=== PATIENT | male | born 1975 | race African-American/Black ===

== ENCOUNTER 2019-10-15 09:54 | Emergency (ER) | payer SELFPAY ==
[~2019-10-15] VITALS: Ht 180.3 cm; Wt 70.3 kg
[2019-10-15] MEDS ORDERED: METR500T PO (10:30)
--- NOTE | 2019-10-15 10:32 | PHYS DOC ---
Past History Past Medical History: No Pertinent History Past Surgical History: No Surgical History Additional Smoking Information: 1/2 PACK Alcohol Use: Occasionally Drug Use: Marijuana Adult General Chief Complaint Chief Complaint: SEXUALLY TRANSMITTED DISEASE HPI HPI Patient is a 44 year old male who presents for an STD check. He states that his girlfriend was diagnosed with Trichomonas. He denies any symptoms. Review of Systems Review of Systems Constitutional: Denies fever or chills [] Eyes: Denies change in visual acuity, redness, or eye pain [] HENT: Denies nasal congestion or sore throat [] Respiratory: Denies cough or shortness of breath [] Cardiovascular: No additional information not addressed in HPI [] GI: Denies abdominal pain, nausea, vomiting, bloody stools or diarrhea [] : Denies dysuria or hematuria [] Musculoskeletal: Denies back pain or joint pain [] Integument: Denies rash or skin lesions [] Neurologic: Denies headache, focal weakness or sensory changes [] Endocrine: Denies polyuria or polydipsia [] All other systems were reviewed and found to be within normal limits, except as documented in this note. Family History Family History No pertinent family medical history was reported Current Medications Current Medications No current medications Allergies Allergies Allergies Coded Allergies Type Severity Reaction Last Updated Verified No Known Drug Allergies 10/15/19 No Physical Exam Physical Exam Constitutional: Well developed, well nourished, no acute distress, non-toxic ap pearance. [] HENT: Normocephalic, atraumatic, Eyes: EOMI, conjunctiva normal, no discharge. [] Neck: Normal range of motion, no tenderness, supple, no stridor. [] Cardiovascular:Heart rate regular rhythm, Lungs & Thorax: Bilateral breath sounds clear to auscultation [] Abdomen: Bowel sounds normal, soft, no tenderness, no masses, no pulsatile masses. [] Skin: Warm, dry, no erythema, no rash. [] Extremities: No tenderness, no cyanosis, no clubbing, ROM intact, no edema. [] Neurologic: Alert and oriented X 3, normal motor function, normal sensory function, no focal deficits noted. [] Psychologic: Affect normal, judgement normal, mood normal. [] Current Patient Data Vital Signs Vital Signs Date Time Temp Pulse Resp B/P (MAP) Pulse Ox O2 Delivery O2 Flow Rate FiO2 10/15/19 10:05 98.5 66 20 99 Room Air EKG EKG [] Radiology/Procedures Radiology/Procedures [] Course & Med Decision Making Course & Med Decision Making Pertinent Labs and Imaging studies reviewed. (See chart for details) [] Dragon Disclaimer Dragon Disclaimer This electronic medical record was generated, in whole or in part, using a voice recognition dictation system. Departure Departure: Impression: Primary Impression: Trichomonas contact Disposition: HOME, SELF-CARE Condition: STABLE Referrals: PCP,NO (PCP) Patient Instructions: Trichomonas, Test Additional Instructions: Elodia was seen in the emergency department for STD check. No emergency medical condition was found on history physical exam. He was given a prescription to treat possible Trichomonas infection, despite having no signs or symptoms. Is advised follow up his primary care doctor as needed for further management. Scripts Metronidazole (FLAGYL) 500 Mg Tablet 1 TAB PO BID for Trichomonas for 7 Days, #14 TAB Prov: ALMA DELIA TORRES MD 10/15/19 ALMA DELIA TORRES MD Oct 15, 2019 10:32
[2019-10-15 10:35] VITALS: BP 161/96
== END 2019-10-15 10:37 | disposition home or self-care (01) ==
LOC: ER 09:54
DX: A59.9 Trichomoniasis, unspecified (principal)
CPT/HCPCS: 99283